=== PATIENT | male | born 1980 | race Caucasian/White ===

== ENCOUNTER 2020-07-31 21:21 | Observation (INO) | payer SELFPAY ==
--- NOTE | ~2020-07-31 | CT_ITS ---
EXAMINATION: CT abdomen pelvis w con DATE: 07/31/2020 22:35 INDICATION: Vomiting. Abdominal pain. TECHNIQUE: Computed tomography (CT) of the abdomen and pelvis was performed with 100 mL Omnipaque 350 intravenous contrast. Automated exposure control and iterative reconstruction technique were employe d. The dose-length product was 786.60 mGy-cm. COMPARISON: None. FINDINGS: The visualized portions of the lung bases demonstrate mild atelectasis in the left. No pleu ral effusion. The heart size is normal. No pericardial effusion. The liver, gallbladder, spleen, and adrenal glands are normal. There is a punctate calcification in the pancreas, consistent with chronic pancreatitis. There are cysts in the kidneys measuring up to 7 mm in the left. The appendix is guille l. There are multiple dilated loops of small bowel with transition point in right lower quadrant, con sistent with small bowel obstruction. The colon is decompressed. There are no pathologically enlarged lymph nodes. There is no free intraperitoneal fluid. There is mild thoracolumbar spondylosis. IMPRESSION: 1. Small bowel obstruction. Reviewed, dictated and finalized at location B. ERTY CLAIM REP IMPRESSION: 1. Small bowel obstruction.
--- NOTE | ~2020-07-31 | XR_ITS ---
EXAMINATION: XR sm bowel follow through WS EXAM DATE: 08/01/2020 11:07 INDICATION: Small bowel obstruction. TECHNIQUE: Banquet Lead radiograph was acquired. Small bowel series was performed with 400 cc water-soluble Omnipaque solution solution. Fluoroscopy time 0.0 minutes with 7 KUB images obtained. There is no p rior study for comparison. FINDINGS: The initial 15 minute image demonstrates normal appearing proximal jejunum. By 30 minutes c ontrast has progressed to several loops of dilated ileum, with further opacification more distally at the 1 hour image. On the 1.5 hour image contrast remains within stomach and small bowel, but there is evidence of contr ast beginning to enter the colon. Overall appearance is consistent with ileus or partial small bowel obstruction. IMPRESSION: Moderately distended mid small bowel with normal transit time 1.5 hours, partial small b owel obstruction or ileus. Reviewed, dictated and finalized at location A. REEL OPERATOR IMPRESSION: Moderately distended mid small bowel with normal transit time 1.5 hours, partial small bowel obstruction or ileus.
[2020-07-31 21:31] VITALS: BP 133/76; PULSE 106; RESP 16; TEMP 36.8; O2SAT 99
--- NOTE | 2020-07-31 21:39 | ED.NAVMDI ---
HPI - Nausea/Vomiting/Diarrhea General Chief complaint: Nausea/Vomiting/Diarrhea Stated complaint: bowel blockage Time Seen by Provider: 07/31/20 21:39 Source: patient and family Mode of arrival: ambulatory Limitations: no limitations History of Present Illness HPI Narrative: Patient is a 40-year-old male who presents for evaluation of abdominal pain, nausea and vomiting. Patient reports history of peptic ulcer disease for which he takes an antacid, he reports abdominal fullness that started around 8 AM today, he has had numerous episodes of nonbilious, nonbloody emesis. He has been unable to tolerate oral intake. He reports abdominal distention and pain throughout his abdomen. He denies any chest pain, shortness of breath or back pain. He denies fever, but reports feeling very cold and clammy with episodes of vomiting. Patient denies history of abdominal surgeries. He states in the past he had a bowel obstruction and believes he had a tube that was passed from the stomach to his mouth, but does not remember the cause of his obstruction. Related Data Home Medications Medication Instructions Recorded Confirmed omeprazole 20 mg PO DAILY 07/31/20 07/31/20 Allergies Allergy/AdvReac Type Severity Reaction Status Date / Time No Known Allergies Allergy Verified 07/31/20 21:40 Review of Systems Review of Systems: Narrative: CONSTITUTIONAL: Denies fever, chills, reports feeling sweaty EYES: Denies visual changes, redness, or discharge. ENT: Denies rhinorrhea, congestion, sore throat, or otalgia. CARDIOVASCULAR: Denies chest pain, palpitations, or edema. RESPIRATORY: Denies cough or dyspnea. GASTROINTESTINAL: Reports abdominal pain, nausea and vomiting GENITOURINARY: Denies dysuria or hematuria. SKIN: Denies rash or itching. MUSCULOSKELETAL: Denies back pain, joint pain, or myalgia. NEUROLOGIC: Reports mild headache PMFSH Past Medical History Medical History (Updated 07/31/20 @ 23:24 by Ivy Brizuela MD) Acid reflux Peptic ulcer disease Social History Social History (Updated 07/31/20 @ 22:07 by Ivy Brizuela MD) Smoking status: Never smoker Substance use: never Living arrangements: with family Gender identity (if verbalized by the patient): Male Exam Narrative: Exam Narrative: GENERAL: Awake, alert, conversant, diaphoretic HEAD: Normocephalic, atraumatic. EYES: PERRLA and EOMI. ENT: Nares clear, no rhinorrhea or epistaxis. Mucous membranes moist. NECK: Supple. CHEST: No respiratory distress, breathing even and non labored HEART: Regular rate, sinus rhythm ABDOMEN: Distention, tender in the periumbilical area and epigastrium EXTREMITIES: Normal range of motion. No edema. SKIN: Warm, dry, no rash. NEURO:No focal deficits. Alert and oriented x3 Course Vital Signs Vital signs: Vital Signs Temperature 36.8 C 07/31/20 21:31 Pulse Rate 106 H 07/31/20 21:31 Respiratory Rate 16 07/31/20 21:31 Blood Pressure 133/76 07/31/20 21:31 Pulse Oximetry 99 07/31/20 21:31 Temperature 36.8 C 07/31/20 21:31 Pulse Rate 99 07/31/20 23:06 Respiratory Rate 18 07/31/20 23:06 Blood Pressure 128/79 07/31/20 23:06 Pulse Oximetry 99 07/31/20 23:06 MDM - Nausea/Vomiting/Diarrhea MDM Narrative Medical decision making narrative: Patient presented for evaluation of abdominal pain, nausea and vomiting. Patient was distention on exam. Leukocytosis to 17.7, no lactic acidosis. No electrolyte derangement. Patient felt much improved following IV fluids, antiemetic and pain medication. CT shows small bowel obstruction. Patient had NG tube inserted however was unable to tolerate this. I spoke with the patient and his family at length regarding the importance and the NG tube, how this worked to help relieve the obstruction, why this was necessary from a surgical point of view and could help him avoid surgery. Patient was offered antianxiety medication, pain medication to help him better
[2020-07-31 21:48] LABS: Basophils Percent Auto 0.2 % (0.2-1.2); Eosinophils Percent Auto 0.2 % (0-4.4); Hematocrit 49.9 % (42.0-52.0); Immature Granulocyte Absolute 0.06 K/mm3 (0.00-0.031); Immature Granulocyte Percent A 0.3 % (0-0.5); Lymphocytes Absolute Auto 3.15 K/mm3 (0.9-3.2); Lymphocytes Percent Auto 17.8 % (18.3-44.2); Mean Corpuscular HGB Conc 36.1 g/dl (32-36); Mean Corpuscular Hemoglobin 31.5 pg (26-34); Mean Corpuscular Volume 87.4 fl (80-100); Mean Platelet Volume 9.6 fl (7.4-10.4); Monocytes Absolute Auto 1.2 K/mm3 (0.1-0.6); Monocytes Percent Auto 6.7 % (2.6-8.5); Neutrophils Absolute Auto 13.3 K/mm3 (1.3-6.7); Neutrophils Percent Auto 74.8 % (45.5-73.1); Platelet Count Result 297 k/mm3 (150-375); Red Blood Count 5.71 M/mm3 (4.6-6.20); Red Cell Distribution Width 11.9 % (11.5-14.5); White Blood Count 17.7 K/mm3 (4.5-10.0)
[2020-07-31 22:02] LABS: Alanine Aminotransferase 28 U/L (4-50); Albumin Level 4.6 g/dL (3.5-5.1); Alkaline Phosphatase 81 U/L (38-126); Anion Gap 12 mmol/L (8-16); Aspartate Amino Transferase 35 U/L (17-59); Blood Urea Nitrogen 20 mg/dL (9-20); Calcium 10.1 mg/dL (8.4-10.2); Carbon Dioxide 26 mmol/L (22-30); Chloride 101 mmol/L (98-107); Estimated CRCL calculation 96 ml/min; Estimated Glomerular Filt Rate > 60; Glucose 107 mg/dL (75-110); Lipase 75 U/L (23-300); Potassium 4.2 mmol/L (3.4-5.0); Sodium 139 mmol/L (137-145)
[2020-07-31 22:10] LABS: Add Urine Microscopic? YES; Appearance Urine Cloudy (Clear); Bilirubin Urine Negative (Negative); Blood Urine Negative (Negative); Color Urine Amber (Yellow); Glucose Urine UA Negative (Negative); Ketones Urine Trace mg/dL (Negative); Leukocyte Esterase Ur Negative LEU/UL (Negative); Mucus Urine Heavy /lpf; Nitrate Urine Negative (Negative); Protein Urine 2+ mg/dL (Negative); RBC Urine 0-2 /hpf (0-2)
[2020-07-31] MEDS: ONDANSETRON INJ 4 MG/2 ML VIAL IV PUSH (22:11)
[2020-07-31] MEDS: MORPHINE SULFATE (*CRX) 4 MG/ML INJ IV PUSH (22:11)
[2020-07-31] MEDS: SODIUM CHLORIDE 0.9% IV 1,000 ML 999 ML IV CONT (22:11)
[2020-07-31 22:19] LABS: Specific Grav Ur 1.031 (1.001-1.035)
[2020-07-31 22:33] LABS: Lactic Acid Reflex 1.2 mmol/L (0.7-2.1)
[2020-07-31 23:06] VITALS: BP 128/79; PULSE 99; RESP 18; O2SAT 99
--- NOTE | 2020-07-31 23:45 | PC.NURSE ---
pt demanding this rn take NG out, refusing any anxiety or pain med offered by md fang. pt informed of risks of taking the NG out by annalisa and this rn. pt states i will pull it out myself. this rn took NG out per pt request. notified.
[2020-08-01 00:45] VITALS: BP 127/71; PULSE 90; RESP 18; O2SAT 99
[2020-08-01 01:02] VITALS: BP 146/72; PULSE 83; RESP 17; TEMP 37.4; O2SAT 96
--- NOTE | 2020-08-01 01:04 | ADMGEN ---
This patient, Mac Rubi, was admitted to 3 [facility] Surg Room 300-01 at 0050. Patient/family oriented to hospital policies and general routines including ID bracelet, bed and alarms, visiting hours, pain management, procedures, bathroom and other care routines, personal items, smoking policy, room service/diet, and visiting hours. Information on how to activate the Rapid Response Team has been discussed. Patient/Family are encouraged to report perceived risks to care and to ask questions if they do not understand what they are told or what they should do.
[2020-08-01] MEDS: SODIUM CHLORIDE 0.9% IV 1,000 ML 125 ML IV CONT (01:39)
[2020-08-01 06:00] VITALS: BP 135/78; PULSE 70; RESP 17; TEMP 36.8; O2SAT 97
[2020-08-01 06:45] LABS: Basophils Percent Auto 0.2 % (0.2-1.2); Eosinophils Absolute Auto 0.2 K/mm3 (0-0.3); Eosinophils Percent Auto 1.1 % (0-4.4); Hemoglobin 15.7 g/dL (14.0-18.0); Immature Granulocyte Absolute 0.06 K/mm3 (0.00-0.031); Immature Granulocyte Percent A 0.5 % (0-0.5); Lymphocytes Absolute Auto 3.18 K/mm3 (0.9-3.2); Lymphocytes Percent Auto 23.9 % (18.3-44.2); Mean Corpuscular HGB Conc 34.9 g/dl (32-36); Mean Corpuscular Volume 88.8 fl (80-100); Mean Platelet Volume 9.9 fl (7.4-10.4); Monocytes Absolute Auto 1.1 K/mm3 (0.1-0.6); Monocytes Percent Auto 8.1 % (2.6-8.5); Neutrophils Absolute Auto 8.8 K/mm3 (1.3-6.7); Neutrophils Percent Auto 66.2 % (45.5-73.1); Platelet Count Result 242 k/mm3 (150-375); Red Blood Count 5.07 M/mm3 (4.6-6.20); White Blood Count 13.3 K/mm3 (4.5-10.0)
[2020-08-01 06:49] LABS: Alanine Aminotransferase 21 U/L (4-50); Albumin Level 3.8 g/dL (3.5-5.1); Alkaline Phosphatase 63 U/L (38-126); Anion Gap 8 mmol/L (8-16); Aspartate Amino Transferase 23 U/L (17-59); Bilirubin,Total 0.9 mg/dL (0.2-1.3); Blood Urea Nitrogen 18 mg/dL (9-20); Calcium 9.7 mg/dL (8.4-10.2); Carbon Dioxide 32 mmol/L (22-30); Chloride 100 mmol/L (98-107); Estimated CRCL calculation 96 ml/min; Estimated Glomerular Filt Rate > 60; Glucose 93 mg/dL (75-110); Potassium 3.7 mmol/L (3.4-5.0); Sodium 140 mmol/L (137-145)
[2020-08-01 06:53] VITALS: BMI 30.2
[2020-08-01 08:00] VITALS: PULSE 70; RESP 17; O2SAT 97
--- NOTE | 2020-08-01 09:19 | PM.IMHP ---
H&P: HPI History of Present Illness Date/Time: 08/01/20 09:19 Chief complaint: Small bowel obstruction Narrative: Mac Rubi is a 40 year old male presenting to ED c/o severe crampy abd pain, N/V yesterday afternoon. Pt reports he was driving and almost blacked out because of the pain. Pt reports he had a similar episode 3-4 yrs ago. Pt had imaging in the ED c/w SBO. Pt denies any previous abd surgery and reports he got scoped last time and told he had some kind of web. Pt feels normal now and reports all symptoms resolved overnight. Review of Systems Constitutional: Constitutional: Denies anorexia, Denies body ache(s), Reports chills, Reports excessive sweating, Denies fatigue, Denies fever(s), Denies headache(s), Denies lethargy, Denies malaise, Denies night sweats, Denies poor appetite, Denies weakness, Denies weight gain and Denies weight loss Eyes: Eyes: Reports no additional eye complaints ENT: Reports system reviewed and no additional complaints, except as documented Cardiovascular: Cardiovascular: Reports no additional cardiovascular complaints Respiratory: Respiratory: Reports no additional respiratory complaints Gastrointestinal: Gastrointestinal: Reports abdominal pain, Reports bloating, Denies change in stool character, Denies constipation, Reports GI cramping, Denies heartburn, Denies diarrhea, Denies loose stools, Reports nausea, Reports vomiting and Denies hematemesis Genitourinary: Genitourinary: Reports no additional male genitourinary complaints Musculoskeletal: Musculoskeletal: Reports no additional musculoskeletal complaints Integumentary/Breasts: Skin/Breast: Reports system reviewed and no additional complaints, except as docu Neurologic: Reports system reviewed and no additional complaints, except as documented Psychiatric: Psychiatric: Reports no additional psychiatric complaints Endocrine: Endocrine: Reports no additional endocrine complaints Hematologic/Lymphatic: Hematologic/Lymphatic: Reports no additional hematologic/lymphatic complaints Allergic/Immunologic: Allergic/Immunologic: Reports no additional allergic/immunologic complaints PMF Past Medical History Medical History Acid reflux Peptic ulcer disease Family History Family History Father Diabetes mellitus Mother Interstitial cystitis Social History Social History Smoking packs per day: 0.5 Smoking cigarettes per day: 10.0 Years smoked: 5 Smoking pack-years: 2.50 Smoking status: Former smoker Tobacco type: cigarettes Alcohol intake: former Substance use: never Living arrangements: with family Gender identity (if verbalized by the patient): Male Spiritual care concerns: No Comments no past surgical history Meds Home Medications and Allergies Home Medications Medication Instructions Recorded Confirmed Type omeprazole 20 mg PO DAILY 07/31/20 07/31/20 History loratadine [Claritin] 10 mg PO DAILY 08/01/20 08/01/20 History Allergies Allergy/AdvReac Type Severity Reaction Status Date / Time cat dander Allergy Sneezing Verified 08/01/20 01:18 Vital Signs Vital Signs - 24 hr 07/31/20 21:31 07/31/20 23:06 08/01/20 00:45 Temperature 36.8 C Pulse Rate 106 H 99 90 Respiratory Rate 16 18 18 Blood Pressure 133/76 128/79 127/71 Pulse Oximetry 99 99 99 08/01/20 01:02 08/01/20 06:00 Temperature 37.4 C 36.8 C Pulse Rate 83 70 Respiratory Rate 17 17 Blood Pressure 146/72 H 135/78 Pulse Oximetry 96 97 Exam Const: General: cooperative, healthy appearing, comfortable, no acute distress, well developed, alert, awake and Physically active Nutritional Appearance: average body habitus Orientation/consciousness: patient oriented x3 Limitations: no limitations HENMT: Head: normal to inspection, normocephali
[2020-08-01 14:00] VITALS: BP 135/79; PULSE 72; RESP 16; TEMP 37.1; O2SAT 95
--- NOTE | 2020-08-01 16:47 | WPDGICN ---
Assessment and Plan Assessment and plan (1) SBO (small bowel obstruction): Code(s): K56.609 - Unspecified intestinal obstruction, unspecified as to partial versus complete obstruction Status: Acute Assessment and Plan: he is responding to medical treatment, no more nausea or vomiting (2) Acid reflux: Code(s): K21.9 - Gastro-esophageal reflux disease without esophagitis Status: Inactive Assessment and Plan: will get records of previous EGD, denies dysphagia or weight loss. (3) Nausea and vomiting in adult: Code(s): R11.2 - Nausea with vomiting, unspecified Status: Acute Assessment and Plan: from SBO, improved. Surgery on board GI Consult Note Consult date/time: 08/01/20 16:47 Reason for consult: N/V, abdominal pain HPI: Mac Rubi is a 40 year old male who came to ER with new onset of severe crampy abdominal pain, N/V that started yesterday afternoon. Pain was so severe that he almost passed out. He had a similar episode about 3-4 yrs ago, he went to [facility] and remembers having EGD, found a growth or web but we do not have records. CT scan showed SBO and admitted to surgery team. He says that is back to normal now, no more nausea, pain and he had a BM. He denies any dysphagia, sometimes some reflux. SB XR showed Moderately distended mid small bowel with normal transit time 1.5 hours, partial small bowel obstruction or ileus. Review of Systems Constitutional: Constitutional: Denies anorexia, Denies body ache(s), Reports chills, Reports excessive sweating, Denies fatigue, Denies fever(s), Denies headache(s), Denies lethargy, Denies malaise, Denies night sweats, Denies poor appetite, Denies weakness, Denies weight gain and Denies weight loss Eyes: Eyes: Reports no additional eye complaints ENT: Reports system reviewed and no additional complaints, except as documented Cardiovascular: Cardiovascular: Reports no additional cardiovascular complaints Respiratory: Respiratory: Reports no additional respiratory complaints Gastrointestinal: Gastrointestinal: Reports abdominal pain, Reports bloating, Denies change in stool character, Denies constipation, Reports GI cramping, Denies heartburn, Denies diarrhea, Denies loose stools, Reports nausea, Reports vomiting and Denies hematemesis Genitourinary: Genitourinary: Reports no additional male genitourinary complaints Musculoskeletal: Musculoskeletal: Reports no additional musculoskeletal complaints Integumentary/Breasts: Skin/Breast: Reports system reviewed and no additional complaints, except as docu Neurologic: Reports system reviewed and no additional complaints, except as documented Psychiatric: Psychiatric: Reports no additional psychiatric complaints Endocrine: Endocrine: Reports no additional endocrine complaints Hematologic/Lymphatic: Hematologic/Lymphatic: Reports no additional hematologic/lymphatic complaints Allergic/Immunologic: Allergic/Immunologic: Reports no additional allergic/immunologic complaints [facility] Past Medical History Medical History Acid reflux Peptic ulcer disease Family History Family History Father Diabetes mellitus Mother Interstitial cystitis Social History Social History Smoking packs per day: 0.5 Smoking cigarettes per day: 10.0 Years smoked: 5 Smoking pack-years: 2.50 Smoking status: Former smoker Tobacco type: cigarettes Alcohol intake: former Substance use: never Living arrangements: with family Gender identity (if verbalized by the patient): Male Spiritual care concerns: No Meds Home Medications and Allergies Home Medications Medication Instructions Recorded Confirmed Type omeprazole 20 mg PO DAILY 07/31/20 07/31/20 History loratadine [Claritin] 10 mg PO DAILY 08/01
--- NOTE | 2020-08-02 09:24 | PM.DS ---
DS: Admitting Diagnosis Admitting Diagnosis Admitting Diagnosis: Small bowel obstruction DS: Discharge Diagnosis Discharge Diagnosis (1) SBO (small bowel obstruction): Code(s): K56.609 - Unspecified intestinal obstruction, unspecified as to partial versus complete obstruction Status: Acute Assessment and Plan: resolved with conservative management, will need further outpatient workup, f/u in 2 wks, appreciate GI input DS: Summary Hospital Course Reason for hospitalization: Small-bowel obstruction Hospital Course: The patient presented to the emergency department complaining severe crampy abdominal pain and nausea and vomiting. The patient reports this episode caused him almost black out and associated cold sweats. The patient reports similar episode 3-4 years ago. Upon evaluation in the emergency department, the patient was diagnosed with a small-bowel obstruction. CT scan was confirmatory of this diagnosis. The patient was admitted to the surgical service and conservative management was initiated. The patient began to have bowel function overnight and all symptoms resolved. Given this, I started him on a diet which he tolerated without issue. A GI consultation and plan is for further workup as outpatient. At this time the patient will be discharged home on a regular diet. He will follow up with me in 2 weeks. Status at Discharge Functional status at discharge: independent ambulation Overall status at discharge: patient is back to baseline Time Spent with Patient Time attestation: Total time spent providing and/or coordinating discharge services: Time spent: Less than 30 minutes Exam Const: General: cooperative, healthy appearing, comfortable, no acute distress and well developed Nutritional Appearance: average body habitus Orientation/consciousness: patient oriented x3 Limitations: no limitations Resp: Effort & Inspection: normal respiratory effort Auscultation: clear to auscultation bilaterally Cardio: Jugular venous distension: no JVD Rate: regular rate Rhythm: regular rhythm GI: Inspection: normal to inspection and non-distended GI Palp: Yes Soft to palpation, No Tenderness to palpation present (GI), No Guarding due to palpation present (GI) and No Rigid due to palpation Discharge Plan Discharge Attending physician on discharge: Veronica Brandt Consulting providers: Antolin Shea ; Pritesh Catalan Discharging Clinician: Veronica Brandt Patient Disposition: Home, Self-Care Activity: as tolerated Diet: regular Patient Instructions: Antibiotic Form, Pain Management (GEN) Stand Alone Forms: General Discharge Information, Work/School Release IP Follow-up/Referrals: Veronica Brandt MD [Physician] - 2 Weeks Discharge Medications: Continued omeprazole 20 mg Tablet,Delayed Release (Dr/Ec) 20 mg PO DAILY RF: 0 loratadine [Claritin] 10 mg Tablet 10 mg PO DAILY RF: 0 Date of admission: 07/31/20 23:21 Primary Care Provider: Waldemar,Tr Acevedo Admitting Provider: Veronica Brandt Attending physician on admission: Veronica Brandt Condition: Stable
== END 2020-08-01 19:05 | disposition home or self-care (01) ==
LOC: ANHED 23:25 → ANH3MEDSUR 08-01 00:23
PROVIDERS: Admitting Provider Surgery; Emergency Provider Emergency Medicine; PCP Internal Medicine; Visit Provider Surgery
DX: K56.609 Unspecified intestinal obstruction, unspecified as to partial versus complete obstruction (principal); K21.9 Gastro-esophageal reflux disease without esophagitis; K27.9 Peptic ulcer, site unspecified, unspecified as acute or chronic, without hemorrhage or perforation; Z87.891 Personal history of nicotine dependence
CPT/HCPCS: 36415; 74177; 74250; 80053; 81001; 83605; 83690; 85025; 96361; 96374; 96375; 99285; G0378; G0379; J2060; J2270; J2405; J7030; Q9967